=== PATIENT | female | born 1945 | race Caucasian/White ===

== ENCOUNTER 2021-03-11 15:36 | Inpatient (IN) | payer BC, MEDICARE, OTHER ==
[~2021-03-11 15:36] MED LIST: Iopamidol-370 76% 500 ML 1 ML ONE
[2021-03-11] MEDS ORDERED: levETIRAcetam in NS 100 ML ONE (15:43)
[2021-03-11 16:45] LABS: Hemoglobin 14.5 g/dL (12.0-16.0); Mean Corpuscular HGB CONC 31.5 g/dL (32.0-36.0); Mean Corpuscular Hemoglobin 31.5 pg (27.0-31.0); Mean Platelet Volume 10.3 fL (7.4-10.4); Platelet Count 268 thou/uL (130-400); RBC Distribution Width 12.8 % (11.5-14.5); Red Blood Cell (RBC) Count 4.61 mill/uL (4.20-5.40); White Blood Cell (WBC) Count 36.7 thou/uL (4.8-10.8)
[2021-03-11 16:53] LABS: INR-International Normal Ratio 1.3; PTT 31.9 sec (22.9-36.1); Prothrombin Time 16.4 sec (12.0-14.7)
[2021-03-11 16:57] LABS: ALT (SGPT) 29 U/L (8-55); AST (SGOT) 14 U/L (5-34); Albumin 3.5 g/dL (3.4-4.8); Alkaline Phosphatase 88 U/L (40-110); Anion Gap 12 mmol/L (10-20); BUN (Urea Nitrogen) 43 mg/dL (9.8-20.1); Bilirubin, Total 0.7 mg/dL (0.2-1.2); Calc. Creatinine Clearance 0 mL/min (70-130); Calcium 9.9 mg/dL (7.8-10.44); Carbon Dioxide 26 mmol/L (23-31); Chloride 114 mmol/L (98-107); Globulin 2.8 g/dL (2.4-3.5); Glucose 147 mg/dL (83-110); Potassium 3.7 mmol/L (3.5-5.1); Protein, Total 6.3 g/dL (5.8-8.1); Sodium 148 mmol/L (136-145)
[2021-03-11 17:07] LABS: Band 35 % (5-11); Lymphocytes 2 % (21-51); MDiff Complete? YES; Metamyelocyte 2 % (0-0); Monocytes 4 % (0-10); Neutrophil 57 % (42-75)
[2021-03-11 17:19] LABS: CKMB 0.5 ng/mL (0-6.6)
[2021-03-11] MEDS ORDERED: Cefepime 2 GM VIAL ONE (17:26)
[2021-03-11] MEDS ORDERED: Lorazepam 2 MG/ML VIAL ONE (18:05)
[2021-03-11] MEDS ORDERED: Vancomycin 1 GM/200 ML BAG ONE (18:26)
[2021-03-11 19:27] LABS: Lactic Acid 2.1 mmol/L (0.5-2.2)
[2021-03-11] MEDS ORDERED: Sodium Chloride 0.9% 500 ML IV SCH (21:30)
[2021-03-11] MEDS: Sodium Chloride 0.9% 1,000 ML IV SCH (21:45)
[2021-03-11] MEDS: Piperacillin/Tazobactam 3.375 GM in Sodium Chloride 0.9% 100 ML IVPB SCH (21:45)
[2021-03-11 21:56] LABS: Troponin I 0.033 ng/mL (< 0.028)
[2021-03-11 23:01] VITALS: BMI 17.6
[2021-03-11 23:16] LABS: SARS-CoV-2 NAA Rapid Test Not Detected (NotDetected)
[2021-03-12] MEDS: Sodium Chloride 0.9% 1,000 ML IV SCH (02:18)
[2021-03-12] MEDS: Piperacillin/Tazobactam 3.375 GM in Sodium Chloride 0.9% 100 ML IVPB SCH ×2 (02:19→08:27)
[2021-03-12 07:14] LABS: Hemoglobin 12.2 g/dL (12.0-16.0); Mean Corpuscular HGB CONC 31.5 g/dL (32.0-36.0); Mean Corpuscular Hemoglobin 31.6 pg (27.0-31.0); Mean Platelet Volume 9.7 fL (7.4-10.4); Platelet Count 238 thou/uL (130-400); RBC Distribution Width 12.9 % (11.5-14.5); Red Blood Cell (RBC) Count 3.85 mill/uL (4.20-5.40); White Blood Cell (WBC) Count 32.9 thou/uL (4.8-10.8)
[2021-03-12 07:16] LABS: Anion Gap 9 mmol/L (10-20); BUN (Urea Nitrogen) 36 mg/dL (9.8-20.1); Calc. Creatinine Clearance 35 mL/min (70-130); Calcium 9.7 mg/dL (7.8-10.44); Carbon Dioxide 26 mmol/L (23-31); Chloride 123 mmol/L (98-107); Glucose 136 mg/dL (83-110); Potassium 3.9 mmol/L (3.5-5.1); Sodium 154 mmol/L (136-145)
[2021-03-12 08:42] LABS: Band 23 % (5-11); Lymphocytes 1 % (21-51); MDiff Complete? YES; Macrocytosis SLIGHT = 6-15 cells (100X) (0-5/hpf); Monocytes 2 % (0-10); Neutrophil 74 % (42-75); Platelet Morphology Comment Appears Adequate; Polychromasia SLIGHT = 2-3 cells (100X) (0-2/hpf)
[2021-03-12] MEDS ORDERED: Morphine 2 MG/ML VIAL SLOW IVP PRN (08:49)
[2021-03-12] MEDS: Morphine 4 MG/ML VIAL SLOW IVP PRN ×3 (09:13→18:22)
[2021-03-12] MEDS ORDERED: Fentanyl 100 MCG/2 ML VIAL SLOW IVP PRN (10:17)
[2021-03-12] MEDS: Lorazepam 2 MG/ML VIAL SLOW IVP PRN ×2 (11:34→17:21)
[2021-03-12 17:02] VITALS: BP 125/71; TEMP 98.4
== END 2021-03-12 19:01 | disposition hospice, inpatient (51) | DRG 872 ==
LOC: ERS 15:36 → OBSVTOIN 18:28 → T4-B 18:28
PROVIDERS: ADMIT Internal Medicine; ATTEND Internal Medicine
DX: A41.9 Sepsis, unspecified organism (principal); K11.21 Acute sialoadenitis; Z66 Do not resuscitate; Z51.5 Encounter for palliative care; F03.90 Unspecified dementia, unspecified severity, without behavioral disturbance, psychotic disturbance, mood disturbance, and anxiety; K21.9 Gastro-esophageal reflux disease without esophagitis; Z20.822 Contact with and (suspected) exposure to COVID-19; M79.7 Fibromyalgia; Z86.73 Personal history of transient ischemic attack (TIA), and cerebral infarction without residual deficits; Z85.3 Personal history of malignant neoplasm of breast; Z92.21 Personal history of antineoplastic chemotherapy; Z92.3 Personal history of irradiation; Z79.82 Long term (current) use of aspirin
CPT/HCPCS: 36415; 70450; 70491; 80048; 80053; 82553; 83605; 83880; 84484; 85025; 85610; 85652; 85730; 86140; 87635; 93005; C9803; J0692; J1953; J2060; J2270; J2543; J3370; J3490; Q9967; U0002; U0003; U0005

== ENCOUNTER 2021-03-12 19:58 | Inpatient (IN) | payer OTHER ==
[2021-03-12] MEDS ORDERED: Lorazepam 2 MG/ML VIAL SLOW IVP PRN (20:37)
[2021-03-12] MEDS ORDERED: Scopolamine 1.5 mg/72 hour Patch TOP PRN (20:43)
[2021-03-12] MEDS ORDERED: Morphine 4 MG/ML VIAL SLOW IVP PRN (20:43)
[2021-03-12] MEDS: Morphine 4 MG/ML VIAL SLOW IVP SCH (20:56)
[2021-03-12] MEDS: Lorazepam 2 MG/ML VIAL SLOW IVP SCH (20:56)
[2021-03-12 23:54] VITALS: BMI 17.6
[2021-03-13] MEDS: Morphine 4 MG/ML VIAL SLOW IVP SCH ×5 (00:45→16:43)
[2021-03-13] MEDS: Lorazepam 2 MG/ML VIAL SLOW IVP SCH ×5 (00:46→16:43)
[2021-03-13 07:24] VITALS: BP 109/71; TEMP 98.4
== END 2021-03-13 18:07 | disposition expired | DRG 951 ==
LOC: T4-B 19:58
PROVIDERS: ADMIT Family Medicine; ATTEND Family Medicine
DX: Z51.5 Encounter for palliative care (principal); A41.9 Sepsis, unspecified organism; R65.20 Severe sepsis without septic shock; E43 Unspecified severe protein-calorie malnutrition; G93.41 Metabolic encephalopathy; K11.3 Abscess of salivary gland; Z68.1 Body mass index [BMI] 19.9 or less, adult; Z66 Do not resuscitate; F03.90 Unspecified dementia, unspecified severity, without behavioral disturbance, psychotic disturbance, mood disturbance, and anxiety; K21.9 Gastro-esophageal reflux disease without esophagitis; M79.7 Fibromyalgia; K11.20 Sialoadenitis, unspecified; Z85.3 Personal history of malignant neoplasm of breast; Z92.21 Personal history of antineoplastic chemotherapy; Z92.3 Personal history of irradiation; Z86.73 Personal history of transient ischemic attack (TIA), and cerebral infarction without residual deficits; Z79.899 Other long term (current) drug therapy; Z86.16 Personal history of COVID-19
CPT/HCPCS: J2060; J2270